=== PATIENT | male | born 1940 | race Caucasian/White ===

== ENCOUNTER → 2017-01-06 | Outpatient (CLI) | payer BC ==
[~2017-01-06] MED LIST: AZITTAB PO; HYCUDL5 PO; TOBR0.3S
== END | disposition home or self-care (01) ==
LOC: C.PATHSPEC 18:00
PROVIDERS: ATTEND Urology
DX: R97.20 Elevated prostate specific antigen [PSA] (principal)

== ENCOUNTER → 2017-07-15 | Outpatient (CLI) | payer BC ==
--- NOTE | 2017-07-15 15:02 | DIAGNOSTIC IMAGING REPORT ---
C-SPINE ROUTINE 4 OR 5 VIEWS CLINICAL HISTORY: Cervical and thoracic pain. COMPARISON STUDY: No previous studies for comparison. FINDINGS: C7 is visualized on the swimmer's projection. There is no acute cervical spine fracture. Vertebral body heights are maintained. There is moderate multilevel disc space narrowing and mild osteophytosis of the cervical spine. There is moderate multilevel facet arthrosis. Prevertebral soft tissues are unremarkable. IMPRESSION: 1. No acute cervical spine fracture or subluxation. 2. Moderate multilevel degenerative disc disease and facet arthrosis of the cervical spine. Electronically signed by: Aj Torres M.D. 07/15/2017 3:01 PM Dictated Date/Time: 07/15/2017 2:59 PM
--- NOTE | 2017-07-15 15:11 | DIAGNOSTIC IMAGING REPORT ---
THORACIC SPINE 3 VIEWS HISTORY: PAIN IN THORACIC SPINE COMPARISON: None. FINDINGS: Mild anterior wedging within the T7 vertebral body consistent with an old compression fracture. Mild S-shaped scoliosis of the thoracolumbar spine. Paraspinal soft tissues are unremarkable. No acute fracture or subluxation identified. Mild degenerative disease within the mid to lower thoracic spine. No subluxation. IMPRESSION: 1. No acute fractures within the thoracic spine. 2. Old mild compression deformity at T7. 3. Degenerative changes and S-shaped scoliosis. Electronically signed by: Matheus Albert M.D. 07/15/2017 3:10 PM Dictated Date/Time: 07/15/2017 3:03 PM
== END | disposition home or self-care (01) ==
LOC: C.RAD1850 14:15
PROVIDERS: ATTEND Family Medicine
DX: M50.30 Other cervical disc degeneration, unspecified cervical region (principal); M89.8X8 Other specified disorders of bone, other site; M41.24 Other idiopathic scoliosis, thoracic region

== ENCOUNTER → 2017-10-08 | Outpatient (CLI) | payer BC ==
[~2017-10-08] MED LIST changes: +GADAVIST IV PRN
--- NOTE | 2017-10-09 09:12 | DIAGNOSTIC IMAGING REPORT ---
PROSTATE MRI COMBO CLINICAL HISTORY: 77 year old male with elevated PSA of 15.5. TECHNIQUE: Multisequence, multiplanar MR imaging of the prostate was performed before and after the administration of intravenous contrast. Additional postprocessing was performed on a separate [employer] workstation by the radiologist for 3-D volumetric segmentation of the prostate and contouring of region(s) of interest (KAM) for targeting. Injection of 7.5 cc of Gadavist IV was uneventful. Postcontrast imaging was performed utilizing dynamic enhancement. COMPARISON: None. FINDINGS: Prostate: The prostate measures 6 x 5 x 5.6 cm cm (Dyna[employer] prostate boundary segmentation volume 85.78 mL). Marked changes of benign prostatic hyperplasia. Precontrast T1 weighted imaging demonstrates no evidence of intrinsic T1 hyperintensity to suggest hemorrhage. The right seminal vesicle is normal. There is decreased T2 signal within the left seminal vesicle which appears diminutive. There is diminished signal within the left seminal vesicle on the ADC map. No increased signal intensity is identified within the left seminal vesicle on the diffusion-weighted sequence. There is asymmetric decreased size of the left seminal vesicle. No suspicious lesion is identified within the prostate gland. The adjacent soft tissues are unremarkable. There is no pelvic lymphadenopathy. Bladder: Normal. Bowel: Visualized portion of the rectum normal. Peritoneum: No free fluid in the pelvis. Lymph nodes: No lymphadenopathy in the visualized portion of the pelvis. Vasculature: Iliac vessels patent. Abdominal wall: Normal. Osseous structures: Normal bone marrow signal intensity. IMPRESSION: 1. No suspicious lesions within the prostate gland. Marked benign prostatic hyperplasia. This study is considered PI-RADS 2: low (clinically significant cancer is unlikely to be present). 2. Asymmetric decreased T2 signal within the left seminal vesicle with diminished size when compared to the right. This is nonspecific and may reflect scarring/sequela of previous infection. Electronically signed by: Aj Torres M.D. 10/09/2017 9:10 AM Dictated Date/Time: 10/08/2017 12:45 PM
== END | disposition home or self-care (01) ==
LOC: C.MRIBC 10:40
PROVIDERS: ATTEND Urology
DX: R97.20 Elevated prostate specific antigen [PSA] (principal)